=== PATIENT | female | born 1960 | race Caucasian/White ===

== ENCOUNTER 2017-06-17 09:14 | Outpatient (CLI) | payer BC | END 2017-06-17 09:15 | disposition home or self-care (01) | LOC: BICMAMMO 09:14 | PROVIDERS: ATTEND Obstetrics & Gynecology | DX: Z12.31 Encounter for screening mammogram for malignant neoplasm of breast (principal); Z13.820 Encounter for screening for osteoporosis; M81.0 Age-related osteoporosis without current pathological fracture; Z87.39 Personal history of other diseases of the musculoskeletal system and connective tissue | CPT/HCPCS: 77063; 77067; 77080 ==